=== PATIENT | male | born 1935 | race Caucasian/White ===

== ENCOUNTER 2019-09-15 16:00 | Observation (INO) | payer MEDICARE, OTHER ==
[2019-09-15] MEDS ORDERED: LORazepam 2 MG/ML SDV IVPUSH ONE ×2 (17:24→19:05)
[2019-09-15] MEDS: Sodium Chloride 0.9% 10 ML Syringe FLUSH PRN ×3 (17:46→21:47)
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
[2019-09-15] MEDS ORDERED: Haloperidol Lactate 5 MG/ML SDV IVPUSH ONE (19:04)
[2019-09-15] MEDS ORDERED: diphenhydrAMINE 50 MG/ML SDV IVPUSH ONE (19:04)
[2019-09-15] MEDS ORDERED: QUEtiapine 25 MG Tab PO ONE (20:21)
[2019-09-15] MEDS ORDERED: diphenhydrAMINE 50 MG/ML SDV IVPUSH PRN (20:22)
[2019-09-15] MEDS ORDERED: Nitroglycerin 0.4 MG Tab.SL SL PRN (20:24)
[2019-09-15] MEDS ORDERED: LORazepam 2 MG/ML SDV IVPUSH PRN (20:24)
[2019-09-16] MEDS ORDERED: Famotidine 20 MG Tab PO SCH (08:00)
[2019-09-16] MEDS ORDERED: Non-Formulary Medication 1 Each (Budesonide/Formoterol Fumarate 2 PUFF) INH SCH (08:00)
[2019-09-16] MEDS: Omeprazole 20 MG Cap.CR PO SCH (09:25)
[2019-09-16] MEDS: QUEtiapine 25 MG Tab PO SCH ×2 (09:26→17:26)
[2019-09-16] MEDS: Sucralfate 1 GM Tab PO SCH ×3 (09:26→17:26)
[2019-09-16] MEDS: amLODIPine 5 MG Tab PO SCH (09:26)
[2019-09-16] MEDS: Aspirin 81 MG Tab.EC PO SCH (09:26)
[2019-09-16] MEDS: Apixaban 5 MG Tab PO SCH ×2 (09:27→17:25)
[2019-09-16] MEDS: Metoprolol Succinate 25 MG Tab.ER PO SCH (09:27)
[2019-09-16] MEDS: Formoterol/Mometasone 200-5 MCG 8.8 GM Inhaler IH SCH ×2 (09:34→17:26)
[2019-09-16] MEDS ORDERED: Temazepam 15 MG Cap PO PRN (10:32)
--- NOTE | 2019-09-16 10:39 | PCM.PN ---
- General Info Date of Service: 09/16/19 Admission Dx/Problem (Free Text): Confusion Functional Status: Reports: Pain Controlled, Tolerating Diet, Ambulating, Urinating. Denies: New Symptoms, Incentive Spirometry Pain Score: 0 - Review of Systems General: Reports: No Symptoms HEENT: Reports: Glasses Pulmonary: Reports: No Symptoms. Denies: Shortness of Breath, Cough, Wheezing Cardiovascular: Reports: No Symptoms. Denies: Chest Pain, Dyspnea on Exertion, Orthopnea, Edema, Lightheadedness Gastrointestinal: Reports: No Symptoms. Denies: Abdominal Pain, Nausea, Vomiting Genitourinary: Reports: No Symptoms. Denies: Dysuria, Burning, Retention, Flank Pain Musculoskeletal: Reports: No Symptoms Skin: Reports: No Symptoms. Denies: Diaphoresis Neurological: Reports: Confusion (Improved by nurses history) Psychiatric: Reports: Confusion (As above), Agitation (Improved by nurses history). Denies: Depression, Anxiety, Cravings, Hallucinations, Homicidal Ideation Systems Review Comment:: Patient is a poor historian secondary to his mental status. - Patient Data Vitals - Most Recent: Last Vital Signs Temp 36.9 C 09/15/19 16:35 Pulse 67 09/16/19 09:27 Resp 20 09/15/19 18:02 BP 137/52 L 09/16/19 09:27 Pulse Ox 96 09/15/19 18:02 Vital Signs - 24 hr 09/15/19 09/15/19 09/16/19 16:35 18:02 09:26 Temperature [ 36.9 C Oral] Pulse, Peripheral Pulse, 72 74 Peripheral [ Pulse Oximetry] Respiratory 18 20 Rate Blood Pressure 137/52 L Blood Pressure 148/61 H 120/75 [Right Upper Arm] O2 Sat by Pulse 98 96 Oximetry 09/16/19 09:27 Temperature [ Oral] Pulse, 67 Peripheral Pulse, Peripheral [ Pulse Oximetry] Respiratory Rate Blood Pressure 137/52 L Blood Pressure [Right Upper Arm] O2 Sat by Pulse Oximetry Weight - Most Recent: 88.451 kg Imaging Impressions - Last 24 Hours: None Lab Results Last 24 Hours: Laboratory Results - last 24 hr 09/15/19 09/15/19 09/15/19 Range/Units 16:43 16:45 16:45 WBC 12.7 H (4.0-10.2) K/uL RBC 4.19 L (4.33-5.41) M/uL Hgb 12.0 L (13.1-16.8) g/dL Hct 38.0 L (39.0-49.0) % MCV 90.7 (84.0-98.0) fL MCH 28.6 (28.2-33.3) pg MCHC 31.6 L (31.7-36.0) g/dL RDW 13.9 (11.2-14.1) % Plt Count 233 (150-350) K/uL Neut % (Auto) 34.6 L (45.0-80.0) % Lymph % (Auto) 57.1 H (10.0-50.0) % [place] % (Auto) 5.5 (2.0-14.0) % Eos % (Auto) 2.6 (0.0-5.0) % Baso % (Auto) 0.2 (0.0-2.0) % Neut # (Auto) 4.41 (1.40-7.00) K/uL Lymph # (Auto) 7.27 H (0.50-3.50) K/uL [place] # (Auto) 0.70 (0.00-1.00) K/uL Eos # (Auto) 0.33 (0.00-0.50) K/uL Baso # (Auto) 0.02 (0.00-0.20) K/uL Sodium 141 (136-145) mmol/L Potassium 4.1 (3.5-5.1) mmol/L Chloride 105 (98-107) mmol/L Carbon Dioxide 26.3 (21.0-32.0) mmol/L BUN 27 H (7-18) mg/dL Creatinine 1.25 H (0.51-1.17) mg/dL Est Cr Clr Drug Dosing 43.99 mL/min Estimated GFR (MDRD) 55 mL/min Glucose 126 H (74-106) mg/dL POC Glucose 116 H (65-110) mg/dl Calcium 8.5 (8.5-10.1) mg/dL Magnesium 2.3 (1.8-2.4) mg/dL Total Bilirubin 0.4 (0.2-1.0) mg/dL AST 28 (15-37) U/L ALT 41 (12-78) U/L Alkaline Phosphatase 88 (46-116) IU/L Ammonia (11-32) umol/L Total Protein 6.9 (6.4-8.2) g/dL Albumin 3.0 L (3.4-5.0) g/dL Specimen Type Urine Color Urine Appearance Urine pH (5.0-9.0) Ur Specific [place] (1.005-1.030) Urine Protein (NEGATIVE) mg/dL Urine Glucose (UA) (NEGATIVE) mg/dL Urine Ketones (NEGATIVE) mg/dL Urine Occult Blood (NEGATIVE) Urine Nitrite (NEGATIVE) Urine Bilirubin (NEGATIVE) Urine Urobilinogen (0.2-1.0) E.U./dL Ur Leukocyte Esterase (NEGATIVE) U Hyaline Cast (Auto) Urine RBC /HPF Urine WBC /HPF Ur Epithelial Cells /LPF Urine Bacteria (NONE TO FEW) /HPF Granular Casts (Auto) Urine Mucus (NEGATIVE) /LPF Urinalysis Comment 09/15/19 09/15/19 Range/Units 16:45 17:35 WBC (4.0-10.2) K/uL RBC (4.33-5.41) M/uL Hgb (13.1-16.8) g/dL Hct (39.0-49.0) % MCV (84.0-98.0) fL MCH (28.2-33.3) pg MCHC (31.7-36.0) g/dL RDW (11.2-14.1) % Plt Count (150-350) K/uL Neut % (Auto) (45.0-80.0) % Lymph % (Auto) (10.0-50.0) % [place] % (Auto) (2.0-14.0) % Eos % (Auto) (0.0-5.0) % Baso % (Auto) (0.0-2.0) % Neut # (Auto) (1.40-7.00) K/uL Lymph # (Auto) (0.50-3.50) K/uL [place] # (Auto) (0.00-1.00) K/uL Eos # (Auto) (0.00-0.50) K/uL Baso # (Auto) (0.00-0.20) K/uL Sodium (136-145) mmol/L Potassium (3.5-5.1) mmol/L Chloride (98-107) mmol/L Carbon Dioxide (21.0-32.0) mmol/L BUN (7-18) mg/dL Creatinine (0.51-1.17) mg/dL Est Cr Clr Drug Dosing mL/min Estimated GFR (MDRD) mL/min Glucose (74-106) mg/dL POC Glucose (65-110) mg/dl Calcium (8.5-10.1) mg/dL Magnesium (1.8-2.4) mg/dL Total Bilirubin (0.2-1.0) mg/dL AST (15-37) U/L ALT (12-78) U/L Alkaline Phosphatase (46-116) IU/L Ammonia 4 L (11-32) umol/L Total Protein (6.4-8.2) g/dL Albumin (3.4-5.0) g/dL Specimen Type Urinblad Urine Color Clementina Urine Appearance Slightly cloudy Urine pH 5.5 (5.0-9.0) Ur Specific [place] 1.025 (1.005-1.030) Urine Protein 30 H (NEGATIVE) mg/dL Urine Glucose (UA) Negative (NEGATIVE) mg/dL Urine Ketones Negative (NEGATIVE) mg/dL Urine Occult Blood Negative (NEGATIVE) Urine Nitrite Negative (NEGATIVE) Urine Bilirubin Negative (NEGATIVE) Urine Urobilinogen 0.2 (0.2-1.0) E.U./dL Ur Leukocyte Esterase Negative (NEGATIVE) U Hyaline Cast (Auto) Few Urine RBC Not seen /HPF Urine WBC 0-5 /HPF Ur Epithelial Cells Few /LPF Urine Bacteria Few (NONE TO FEW) /HPF Granular Casts (Auto) Few Urine Mucus Many H (NEGATIVE) /LPF Urinalysis Comment Jose Results Last 24 Hours: None Med Orders - Current: Current Medications Amlodipine Besylate (Norvasc) 5 mg PO DAILY [facility] Last Admin: 09/16/19 09:26 Dose: 5 mg Apixaban (Eliquis) 5 mg PO BID [facility] Last Admin: 09/16/19 09:27 Dose: 5 mg Aspirin (Halfprin) 81 mg PO DAILY [facility] Last Admin: 09/16/19 09:26 Dose: 81 mg Atorvastatin Calcium (Lipitor) 20 mg PO DAILY@18 SVETLANA Diphenhydramine HCl (Benadryl) 50 mg IVPUSH Q8H PRN PRN Reason: Agitation Lorazepam (Ativan) 1 mg IVPUSH Q6H PRN PRN Reason: Agitation Metoprolol Succinate (Toprol Xl) 50 mg PO DAILY [facility] Last Admin: 09/16/19 09:27 Dose: 50 mg Mometasone Furoate/Formoterol Fumar (Dulera 200-5 Mcg) 2 puff IH BID [facility] Last Admin: 09/16/19 09:34 Dose: 2 inhalation Nitroglycerin (Nitrostat) 0.4 mg SL ASDIRECTED PRN PRN Reason: CHEST PAIN Non-Formulary Medication (Budesonide/Formoterol Fumarate) 2 puff INH BID [facility] Omeprazole (Omeprazole) 20 mg PO DAILY [facility] Last Admin: 09/16/19 09:25 Dose: 20 mg Quetiapine Fumarate (Seroquel) 25 mg PO BID [facility] Last Admin: 09/16/19 09:26 Dose: 25 mg Sodium Chloride (Saline Flush) 10 ml FLUSH ASDIRECTED PRN PRN Reason: Keep Vein Open Last Admin: 09/15/19 21:47 Dose: 10 ml Sucralfate (Carafate) 1 gm PO TID [facility] Last Admin: 09/16/19 09:26 Dose: 1 gm Temazepam (Restoril) 15 mg PO BEDTIME PRN PRN Reason: Insomnia Discontinued Medications Diphenhydramine HCl (Benadryl) 50 mg IVPUSH ONETIME ONE Stop: 09/15/19 19:05 Last Admin: 09/15/19 19:09 Dose: 50 mg Famotidine (Pepcid) 40 mg PO DAILY [facility] Last Admin: 09/16/19 09:25 Dose: 40 mg Haloperidol Lactate (Haldol) 5 mg IVPUSH ONETIME ONE Stop: 09/15/19 19:05 Last Admin: 09/15/19 21:47 Dose: 5 mg Lorazepam (Ativan) 0.5 mg IVPUSH ONETIME ONE Stop: 09/15/19 17:25 Last Admin: 09/15/19 17:43 Dose: 0.5 mg Lorazepam (Ativan) 1 mg IVPUSH ONETIME ONE Stop: 09/15/19 19:06 Last Admin: 09/15/19 19:09 Dose: 1 mg Non-Formulary Medication (Melatonin [Melatonin]) 5 mg PO BEDTIME SVETLANA Quetiapine Fumarate (Seroquel) 25 mg PO ONETIME ONE Stop: 09/15/19 20:22 Last Admin: 09/15/19 21:37 Dose: 25 mg - Exam Quality Assessment: DVT Prophylaxis (Eliquis). No: Supplemental Oxygen, Central Line/PICC, Urine Catheter, Skin Breakdown General: Alert, Cooperative, No Acute Distress. No: Oriented HEENT: Pupils Equal, Pupils Reactive, EOMI, Mucous Membr. Moist/[place], Other ( Patient wearing glasses). No: Scleral Icterus Neck: Supple, Trachea Midline, No JVD, No Thyromegaly, Carotid Bruit (Bilateral carotid bruitsmild). No: Lymphadenopathy Lungs: Clear to Auscultation, Normal Respiratory Effort, Stridor. No: Rub Cardiovascular: Regular Rate, Regular Rhythm. No: Gallops, Rubs GI/Abdominal Exam: Normal Bowel Sounds, Soft, Non-Tender, No Organomegaly, No Distention, No Abnormal Bruit, No Mass, Other (Obese). No: Guarding (Male) Exam: Deferred Back Exam: Normal Inspection, Full Range of Motion. No: CVA Tenderness (L), CVA Tenderness (R), Muscle Spasm Extremities: Normal Range of Motion, Non-Tender, Normal Capillary Refill, Pedal Edema (Trace bilateral pedal/pretibial edema). No: Adrianne's Sign Peripheral Pulses: 2+: Radial (L), Radial (R), Dorsalis Pedis (L), Dorsalis Pedis (R) Skin: Warm, Dry, Intact. No: Ecchymosis Neurological: No New Focal Deficit, Other (Improved moderate confusion with current Seroquel therapy by nurses' history. No agitation) Psy/Mental Status: Alert. No: Agitated, Hallucinations, Withdrawal Symptoms Sepsis Event Note - Evaluation Sepsis Screening Result: No Definite Risk - Focused Exam Vital Signs: Vital Signs Pulse BP 09/16/19 09:27 67 137/52 L 09/16/19 09:26 137/52 L Date Exam was Performed: 09/16/19 Time Exam was Performed: 10:33 - Problem List & Annotations (1) Confusion SNOMED Code(s): 286520837 Code(s): R41.0 - DISORIENTATION, UNSPECIFIED Status: Chronic Priority: High Current Visit: Yes Annotation/Comment:: Worsening dementia over last several months per his daughter's history as per emergency room note. No formal workup/cognitive testing to this point. Cerebral atrophy and small vessel disease on CT of the head on 09/15/19. Nonspecific lesion was noted by the radiologist, however, with consideration of MRI of the brain, neurological consultation, further workup, etc.. Note, however current comfort care status. Family is strongly considering long-term [facility] placement. PT and OT has been ordered. Per history from his daughter at this point it is unsafe for the patient to live alone/drive and care for self. Secondary to his confusion is Pepcid will be discontinued with continuation of his Prilosec for now. Update blood work in the a.m. to include possible additional etiology for his confusion including hypothyroidism, vitamin B-12 deficiency, etc.. Note additional Seroquel therapy on admission, which does appear to be effective. The patient did require initial IV Haldol and IV Ativan for control of his agitation, however. (2) CKD (chronic kidney disease) SNOMED Code(s): 047841029 Code(s): N18.9 - CHRONIC KIDNEY DISEASE, UNSPECIFIED Status: Chronic Priority: Medium Current Visit: Yes Qualifiers: Chronic kidney disease stage: on chronic dialysis Qualified Code(s): N18.6 - End stage renal disease; Z99.2 - Dependence on renal dialysis Annotation/Comment:: Stable per history with repeat blood work in the a.m. (3) HTN (hypertension) SNOMED Code(s): 46446173 Code(s): I10 - ESSENTIAL (PRIMARY) HYPERTENSION Status: Chronic Priority : Medium Current Visit: Yes Qualifiers: Hypertension type: essential hypertension Qualified Code(s): I10 - Essential (primary) hypertension Annotation/Comment:: Good control during this hospitalizatin. (4) Paroxysmal A-fib SNOMED Code(s): 146247059 Code(s): I48.0 - PAROXYSMAL ATRIAL FIBRILLATION Status: Acute Priority: Medium Current Visit: Yes Annotation/Comment:: Stable per history with current Eliquis. Note atrial fibrillation not indicated on emergency room note, however this was documented in EMR records. (5) Asthma SNOMED Code(s): 871391319 Code(s): J45.909 - UNSPECIFIED ASTHMA, UNCOMPLICATED Status: Chronic Priority: Medium Current Visit: Yes Qualifiers: Asthma severity: mild Asthma persistence: intermittent Asthma complication type: uncomplicated Qualified Code(s): J45.20 - Mild intermittent asthma, uncomplicated Annotation/Comment:: No recent fever or bronchitic type symptoms. (6) CAD (coronary artery disease) SNOMED Code(s): 18779416 Code(s): I25.10 - ATHSCL HEART DISEASE OF [place] CORONARY ARTERY W/O ANG PCTRS Status: Chronic Priority: Medium Current Visit: Yes Qualifiers: Coronary Disease-Associated Artery/Lesion type: unspecified vessel or lesion type [place] vs. transplanted heart: [place] heart Associated angina: angina presence unspecified Qualified Code(s): I25.10 - Atherosclerotic heart disease of [place] coronary artery without angina pectoris Annotation/Comment:: Hx of TX, stent placement, diastolic dysfunction, valvular disease. Followed by Cardiology. No acute changes/chest pain per patient and his family. Troponin I and BNP to be conducted on 09/16 secondary to recently initiated Seroquel. Note comfort care status. (7) CLL (chronic lymphocytic leukemia) SNOMED Code(s): 79988616 Code(s): C91.10 - CHRONIC LYMPHOCYTIC LEUK OF B-CELL TYPE NOT ACHIEVE REMIS Status: Chronic Priority: Medium Current Visit: Yes Annotation/Comment: : Mild leukocytosis on admission. Note comfort care. Repeat blood work prior to discharge. (8) GERD (gastroesophageal reflux disease) SNOMED Code(s): 558035383 Code(s): K21.9 - GASTRO-ESOPHAGEAL REFLUX DISEASE WITHOUT ESOPHAGITIS Status: Chronic Priority: Low Current Visit: Yes Qualifiers: Esophagitis presence: esophagitis presence not specified Qualified Code(s) : K21.9 - Gastro-esophageal reflux disease without esophagitis Annotation/Comment:: Stable per history with discontinuation of Pepcid as above. (9) Hyperlipidemia SNOMED Code(s): 54523036 Code(s): E78.5 - HYPERLIPIDEMIA, UNSPECIFIED Status: Chronic Priority: Medium Current Visit: Yes Qualifiers: Hyperlipidemia type: unspecified Qualified Code(s): E78.5 - Hyperlipidemia , unspecified Annotation/Comment:: Currently under therapy. Glycosylated hemoglobin in the a.m. (10) Need for comfort care SNOMED Code(s): 979757852, 116276414 Code(s): LDW4940 - Status: Chronic Priority: High Current Visit: Yes Annotation/Comment:: As above (11) Mixed anxiety depressive disorder SNOMED Code(s): 750862844 Code(s): F41.8 - OTHER SPECIFIED ANXIETY DISORDERS Status: Chronic Priority: Medium Current Visit: Yes Annotation/Comment:: Otherwise stable by history. Observe for now. - Problem List Review Problem List Initiated/Reviewed/Updated: Yes - My Orders Last 24 Hours: My Active Orders 09/16/19 10:14 Comfort Measures [OM.PC] Routine 09/16/19 10:24 GM Immunization Reflex [OM.PC] Click To Edit 09/16/19 10:27 Communication, Vaccine [RC] PER UNIT ROUTINE Vaccines to be Administered [RC] PER UNIT ROUTINE 09/16/19 10:31 Antiembolic Devices [RC] .Routine VTE Risk Score [RC] UPON VTE/DVT Education [RC] PER UNIT ROUTINE DVT/VTE Prophylaxis Reflex [OM.PC] Routine 09/16/19 10:32 Temazepam [Restoril] 15 mg PO BEDTIME PRN 09/16/19 10:33 Communication Order [RC] ROUTINE 09/17/19 05:11 CBC WITH AUTO DIFF [HEME] Routine COMPREHENSIVE METABOLIC PN,CMP [CHEM] Routine FERRITIN [CHEM] Routine FOLIC ACID [CHEM] Routine GLYCOSYLATED HEMOGLOBIN,HGBA1C [CHEM] Routine IRON/TIBC [CHEM] Routine MAGNESIUM [CHEM] Routine PRO B-TYPE NATRIUR PEPT,BNPPRO [CHEM] Routine TROPONIN I [CHEM] Routine TSH ULTRASENSITIVE [CHEM] Routine URIC ACID [CHEM] Routine VITAMIN B12 [CHEM] Routine - Assessment Assessment:: As above - Plan Plan:: As above. Extensive precautions were given to the patient, who is in agreement with the treatment plan. Patient will likely be transferred to a long-term [facility] in the a.m., however we are still awaiting his family's final decision.
[2019-09-16] MEDS: Sodium Chloride 0.9% 10 ML Syringe FLUSH PRN ×2 (12:03→22:13)
[2019-09-16] MEDS ORDERED: atorvaSTATin 10 MG Tab PO SCH (18:00)
[2019-09-16] MEDS ORDERED: Non-Formulary Medication 1 Each (Melatonin [Melatonin] 5 MG) PO SCH (20:00)
[2019-09-17 07:29] LABS: HEMOGLOBIN A1C 6.7 % (4.3-5.7)
[2019-09-17 08:02] LABS: CHLORIDE,CL 110 mmol/L (98-107); SODIUM,NA 146 mmol/L (136-145)
[2019-09-17] MEDS: Sucralfate 1 GM Tab PO SCH ×2 (09:07→13:17)
[2019-09-17] MEDS: Apixaban 5 MG Tab PO SCH (09:07)
[2019-09-17] MEDS: Metoprolol Succinate 25 MG Tab.ER PO SCH (09:07)
[2019-09-17] MEDS: Omeprazole 20 MG Cap.CR PO SCH (09:07)
[2019-09-17] MEDS: Aspirin 81 MG Tab.EC PO SCH (09:08)
[2019-09-17] MEDS: amLODIPine 5 MG Tab PO SCH (09:08)
[2019-09-17 09:09] VITALS: BP 181/66; PULSE 67
[2019-09-17] MEDS: Formoterol/Mometasone 200-5 MCG 8.8 GM Inhaler IH SCH (09:09)
[2019-09-17] MEDS: QUEtiapine 25 MG Tab PO SCH (09:10)
--- NOTE | 2019-09-17 12:43 | PCM.DCSUM1 ---
Discharge Summary - Hospital Course HPI Initial Comments: See emergency room note/admission H&P Brief History: See emergency room note/admission H&P Diagnosis: Stroke: No Modified [place] Scale: No Symptoms at All Modified [place] Scale Score: 0 - Discharge Data Discharge Date: 09/17/19 Discharge Disposition: DC/Tfer W/I Hosp To Swing 61 Condition: Fair - Referral to Home Health Primary Care Physician: Yocasta Husain NP - Discharge Diagnosis/Problem(s) (1) Confusion SNOMED Code(s): 824853820 ICD Code: R41.0 - DISORIENTATION, UNSPECIFIED Status: Chronic Priority: High Current Visit: Yes Problem Details: Various treatment options were provided to the patient's family, who are still having difficulties making a final decision. This did result in some delay of patient transfer with out sequelae. Family has been extensively counseled concerning the increased cost of self-pay in our swing bed unit versus placement of the patient in a local [facility], however they are requesting placement in our swing bed for now. He apparently does not qualify for further payment for PT and OT, which was conducted during his observation status. Recent history of worsening dementia over last several months per his daughter's history as per emergency room note. No formal workup/cognitive testing to this point. Cerebral atrophy and small vessel disease on CT of the head on 09/15/19. Nonspecific lesion was noted by the radiologist, however, with consideration of MRI of the brain, neurological consultation, further workup, etc. depending on his clinical course and per wishes from the family and his new provider, SD Morejon at the [facility]. Note, however current comfort care status. Per history from his daughter at this point it is unsafe for the patient to live alone/drive and care for self. Secondary to his confusion his Pepcid was discontinued on 09/15 with continuation of his Prilosec for now. Update blood work on 09/16 with no additional etiology for his confusion although his TSH is somewhat elevated likely secondary to concomitant administration of his iron, calcium, magnesium supplements. These supplements were changed to an every afternoon basis with repeat TSH recommended in 4 weeks. Vitamin B-12 deficiency, etc. are not an issue at this time based on today's blood work. His iron level was normal with somewhat decreased TIBC see likely secondary to his hypoalbuminemia. No further increase of his iron supplement for now. Note additional Seroquel therapy on admission, which did appear to be effective. His therapy will be decreased to a daily rather than twice a day regimen, however, secondary to patient's mild BNP elevation and hyponatremia. Seroquel was not given in the a.m. of 09/16 without sequelae. Continue to observe his mental status closely during his swing bed care, etc. The patient did require initial IV Haldol and IV Ativan for control of his agitation, etc. during early phases of his care, however. No significant agitation on day of transfer. (2) CKD (chronic kidney disease) SNOMED Code(s): 477758001 ICD Code: N18.9 - CHRONIC KIDNEY DISEASE, UNSPECIFIED Status: Chronic Priority: Medium Current Visit: Yes Problem Details: Stable per history and today's blood work with continued close observation by his regular providers. Qualifiers: Chronic kidney disease stage: on chronic dialysis Qualified Code(s): N18.6 - End stage renal disease; Z99.2 - Dependence on renal dialysis (3) HTN (hypertension) SNOMED Code(s): 21292008 ICD Code: I10 - ESSENTIAL (PRIMARY) HYPERTENSION Status: Chronic Priority : Medium Current Visit: Yes Problem Details: Good control during this hospitalizatin. Qualifiers: Hypertension type: essential hypertension Qualified Code(s): I10 - Essential (primary) hypertension (4) Paroxysmal A-fib SNOMED Code(s): 321016293 ICD Code: I48.0 - PAROXYSMAL ATRIAL FIBRILLATION Status: Acute Priority: Medium Current Visit: Yes Problem Details: Stable per history with current Eliquis. Mild sinus arrhythmia today by EKG. Note atrial fibrillation not indicated on emergency room note, however this was documented in EMR records. (5) Asthma SNOMED Code(s): 106768455 ICD Code: J45.909 - UNSPECIFIED ASTHMA, UNCOMPLICATED Status: Chronic Priority: Medium Current Visit: Yes Problem Details: No recent fever or bronchitic type symptoms. Qualifiers: Asthma severity: mild Asthma persistence: intermittent Asthma complication type: uncomplicated Qualified Code(s): J45.20 - Mild intermittent asthma, uncomplicated (6) CAD (coronary artery disease) SNOMED Code(s): 34886557 ICD Code: I25.10 - ATHSCL HEART DISEASE OF [place] CORONARY ARTERY W/O ANG PCTRS Status: Chronic Priority: Medium Current Visit: Yes Problem Details: Hx of [place], stent placement, diastolic dysfunction, valvular disease. Followed by Cardiology. No acute changes/chest pain per patient and his family. Troponin I was still normal with mild BNP elevation and hypernatremia likely secondary to with reduction of therapy as above. Repeat troponin I and BNP recommended in about 2 weeks. Note comfort care status with no echocardiogram, etc. for now. Qualifiers: Coronary Disease-Associated Artery/Lesion type: unspecified vessel or lesion type [place] vs. transplanted heart: [place] heart Associated angina: angina presence unspecified Qualified Code(s): I25.10 - Atherosclerotic heart disease of [place] coronary artery without angina pectoris (7) CLL (chronic lymphocytic leukemia) SNOMED Code(s): 03383305 ICD Code: C91.10 - CHRONIC LYMPHOCYTIC LEUK OF B-CELL TYPE NOT ACHIEVE REMIS Status: Chronic Priority: Medium Current Visit: Yes Problem Details: Mild leukocytosis on admission some improvement on 09/16.. Note comfort care. Continue to observe closely by regular providers. (8) GERD (gastroesophageal reflux disease) SNOMED Code(s): 330699224 ICD Code: K21.9 - GASTRO-ESOPHAGEAL REFLUX DISEASE WITHOUT ESOPHAGITIS Status: Chronic Priority: Low Current Visit: Yes Problem Details: Stable per history with discontinuation of Pepcid as above. Qualifiers: Esophagitis presence: esophagitis presence not specified Qualified Code(s) : K21.9 - Gastro-esophageal reflux disease without esophagitis (9) Hyperlipidemia SNOMED Code(s): 51759620 ICD Code: E78.5 - HYPERLIPIDEMIA, UNSPECIFIED Status: Chronic Priority: Medium Current Visit: Yes Problem Details: Currently under therapy. Glycosylated hemoglobin on 09/16 mildly elevated at 6.7%. Continue dietary management for now with repeat lipid panel per the discretion of his regular providers. Qualifiers: Hyperlipidemia type: unspecified Qualified Code(s): E78.5 - Hyperlipidemia , unspecified (10) Need for comfort care SNOMED Code(s): 603546381, 243422326 ICD Code: SQG2310 - Status: Chronic Priority: High Current Visit: Yes Problem Details: As above (11) Mixed anxiety depressive disorder SNOMED Code(s): 188305915 ICD Code: F41.8 - OTHER SPECIFIED ANXIETY DISORDERS Status: Chronic Priority: Medium Current Visit: Yes Problem Details: Otherwise stable by history. Observe for now. (12) Hypoalbuminemia SNOMED Code(s): 806680284 ICD Code: E88.09 - OTH DISORDERS OF PLASMA-PROTEIN METABOLISM, NEC Status: Acute Priority: Medium Current Visit: Yes Onset Date: 09/17/19 Problem Details: As above. Observe for now. Consider high-protein Glucerna supplements. - Patient Summary/Data Operative Procedure(s) Performed: None Complications: None Consults: Consultations 09/15/19 19:52 Consult to Case Management/Diamond Sawer [CONS] Routine 09/15/19 20:17 OT Evaluation and Treatment [CONS] Routine PT Evaluation and Treatment [CONS] Routine Labs Pending at D/C: Final report of CT of the head on 09/15/19. Recommended Follow-up Testing/Procedures: As per transfer instructions Planned Operative Procedure(s) after DC: None Hospital Course: The patient was placed in observation status for further evaluation and treatment of his progressive recent confusion and agitation as above. He did respond to medical therapy as above with patient being a candidate for possible further reduction of his Seroquel with further medication adjustment depending on his clinical course. The family is still deciding whether they want long- term care placement with this to be discussed further with the patient's regular provider. Emotional support was provided by multiple hospital staff members. His regular provider, SD Morejon at the [facility], will assume the patient's care in our swing bed for now. - Patient Instructions Diet: Fluid Restriction Diet, Other: Heart healthy, 1800-calorie ADA, diverticulosis Fluid Restriction: 2000 mL Activity: As Tolerated (With assist with strict fall precautions) Driving: Do Not Drive Showering/Bathing: May Shower Notify Provider of: Fever, Increased Pain, Nausea and/or Vomiting Other/Special Instructions: 1. Further medication changes, orders, etc. through his regular provider, SD Morejon at the [facility]. 2. Consider repeat TSH in 4 weeks. 3. Discuss with regular provider possibility of MRI of the brain, neurology consultation, etc. secondary to recent confusion and CT scan of the brain results on 09/14. - Discharge Plan *PRESCRIPTION DRUG MONITORING PROGRAM REVIEWED*: Not Applicable *COPY OF PRESCRIPTION DRUG MONITORING REPORT IN PATIENT KHURRAM: Not Applicable Home Medications: Home Meds Aspirin [Adult Low Dose Aspirin EC] 81 mg PO DAILY 07/19/14 [History] Fluticasone/Salmeterol [Advair 500-50] 1 puff INH BID 07/19/14 [History] Lovastatin 80 mg PO DAILY@18 07/19/14 [History] Metoprolol Succinate [Toprol XL] 50 mg PO DAILY 07/19/14 [History] Omeprazole 20 mg PO DAILY 07/19/14 [History] amLODIPine [Norvasc] 5 mg PO DAILY 01/20/19 [History] Apixaban [Eliquis] 5 mg PO BID 03/23/19 [History] Melatonin 5 mg PO BEDTIME 03/23/19 [History] Nitroglycerin [Nitrostat] 0.4 mg SL ASDIRECTED PRN 03/23/19 [History] Vit C/E/Zn/Coppr/Lutein/Zeaxan [Preservision Areds 2 Softgel] 1 each PO BID 06/10 [History] Budesonide/Formoterol Fumarate [Symbicort 160-4.5 Mcg Inhaler] 2 puff INH BID [History] Famotidine [Pepcid] 40 mg PO DAILY 09/15/19 [History] Sucralfate [Carafate] 1 gm PO TID 09/15/19 [History] Temazepam [Restoril] 30 mg PO BEDTIME PRN 09/15/19 [History] Oxygen Therapy Mode: Room Air Referrals: Yocasta Husain DIGITAL CONTENT MANAGER [Primary Care Provider] - - Discharge Summary/Plan Comment DC Time >30 min.: Yes (Coordination of care ) Discharge Summary/Plan Comment: As above. Extensive precautions were given to the patient's, who is in agreement with the treatment plan. See Patient Instructions and transfer orders for further treatment and plan. - General Info Date of Service: 09/17/19 Admission Dx/Problem (Free Text: Confusion Functional Status: Reports: Pain Controlled, Tolerating Diet, Ambulating, Urinating. Denies: New Symptoms, Incentive Spirometry Numeric/FACES Score: 0 - Review of Systems General: Reports: No Symptoms. Denies: Fever, Weakness, Chills, Night Sweats, Appetite (Appetite good) HEENT: Reports: Glasses. Denies: Headaches, Visual Changes Pulmonary: Reports: No Symptoms. Denies: Shortness of Breath, Cough, Wheezing Cardiovascular: Reports: No Symptoms. Denies: Chest Pain, Palpitations, Orthopnea, Edema, Lightheadedness Gastrointestinal: Reports: No Symptoms. Denies: Abdominal Pain, Constipation, Decreased Appetite, Diarrhea, Difficulty Swallowing, Flatus, Hematochezia, Melena, Nausea, Vomiting Genitourinary: Reports: No Symptoms. Denies: Dysuria, Frequency, Burning, Urgency, Hematuria, Flank Pain Musculoskeletal: Reports: No Symptoms. Denies: Neck Pain, Shoulder Pain, Arm Pain, Back Pain, Leg Pain Skin: Reports: No Symptoms. Denies: Diaphoresis Neurological: Reports: Confusion (Stable) Psychiatric: Reports: Confusion (Stable). Denies: Depression, Anxiety, Agitation, Cravings, Hallucinations, Homicidal Ideation - Patient Data Vitals - Most Recent: Last Vital Signs Temp 36.5 C 09/17/19 06:00 Pulse 67 09/17/19 09:07 Resp 16 09/17/19 06:00 BP 181/66 H 09/17/19 09:08 Pulse Ox 99 09/17/19 06:00 Vital Signs - 24 hr 09/16/19 09/16/19 09/17/19 18:00 22:05 06:00 Temperature [ 36.1 C 36.0 C L 36.5 C Temporal] Pulse, Peripheral Pulse, 60 95 67 Peripheral [ Pulse Oximetry] Respiratory 20 14 16 Rate Blood Pressure Blood Pressure 129/48 L 181/66 H [Left Upper Arm ] Blood Pressure 135/64 [Right Upper Arm] O2 Sat by Pulse 99 96 99 Oximetry 09/17/19 09/17/19 09:07 09:08 Temperature [ Temporal] Pulse, 67 Peripheral Pulse, Peripheral [ Pulse Oximetry] Respiratory Rate Blood Pressure 181/66 H 181/66 H Blood Pressure [Left Upper Arm ] Blood Pressure [Right Upper Arm] O2 Sat by Pulse Oximetry Weight - Most Recent: 88.451 kg I&O - Last 24 hours: Intake & Output 09/16/19 09/17/19 09/17/19 22:59 06:59 14:59 Intake Total 1530 100 600 Balance 1530 100 600 Imaging Impressions - Last 24 hrs: CT of the head results from 09/15/19 were negative for acute bleed/changes but noted to have soft tissue density near cranial occipital junction. Radiology did not feel that this would result in confusion but did say that an MRI could be useful down the road to more adequately work up the observed change. Also noted to have cerebral atrophy and small vessel ischemic disease. Final report is still pending Lab Results - Last 24 hrs: Laboratory Results - last 24 hr 09/17/19 09/17/19 09/17/19 Range/Units 07:10 07:10 07:10 WBC 10.8 H (4.0-10.2) K/uL RBC 4.01 L (4.33-5.41) M/uL Hgb 11.5 L (13.1-16.8) g/dL Hct 36.4 L (39.0-49.0) % MCV 90.8 (84.0-98.0) fL MCH 28.7 (28.2-33.3) pg MCHC 31.6 L (31.7-36.0) g/dL RDW 13.6 (11.2-14.1) % Plt Count 221 (150-350) K/uL Neut % (Auto) 33.5 L (45.0-80.0) % Lymph % (Auto) 58.2 H (10.0-50.0) % [place] % (Auto) 4.7 (2.0-14.0) % Eos % (Auto) 3.3 (0.0-5.0) % Baso % (Auto) 0.3 (0.0-2.0) % Neut # (Auto) 3.63 (1.40-7.00) K/uL Lymph # (Auto) 6.30 H (0.50-3.50) K/uL [place] # (Auto) 0.51 (0.00-1.00) K/uL Eos # (Auto) 0.36 (0.00-0.50) K/uL Baso # (Auto) 0.03 (0.00-0.20) K/uL Sodium 146 H (136-145) mmol/L Potassium 4.2 (3.5-5.1) mmol/L Chloride 110 H (98-107) mmol/L Carbon Dioxide 27.4 (21.0-32.0) mmol/L BUN 21 H (7-18) mg/dL Creatinine 1.02 (0.51-1.17) mg/dL Est Cr Clr Drug Dosing 53.91 mL/min Estimated GFR (MDRD) > 60 mL/min Glucose 110 H (74-106) mg/dL Hemoglobin A1c (4.3-5.7) % Uric Acid 6.9 (2.6-7.2) mg/dL Calcium 8.2 L (8.5-10.1) mg/dL Magnesium 2.3 (1.8-2.4) mg/dL Iron 52 (50-175) ug/dL TIBC 188 L (250-450) ug/dL % Saturation 27.69204 Ferritin 212 (8-388) ng/mL Total Bilirubin 0.3 (0.2-1.0) mg/dL AST 27 (15-37) U/L ALT 35 (12-78) U/L Alkaline Phosphatase 76 (46-116) IU/L Troponin I 0.013 (0.000-0.056) ng/mL NT-Pro-B Natriuret Pep 407 H (0-125) pg/mL Total Protein 6.0 L (6.4-8.2) g/dL Albumin 2.4 L (3.4-5.0) g/dL Vitamin B12 495 (193-986) pg/mL Folate 20.3 (8.6-58.9) ng/mL TSH, Ultra Sensitive 3.102 (0.358-3.740) mIU/mL 09/17/19 Range/Units 07:10 WBC (4.0-10.2) K/uL RBC (4.33-5.41) M/uL Hgb (13.1-16.8) g/dL Hct (39.0-49.0) % MCV (84.0-98.0) fL MCH (28.2-33.3) pg MCHC (31.7-36.0) g/dL RDW (11.2-14.1) % Plt Count (150-350) K/uL Neut % (Auto) (45.0-80.0) % Lymph % (Auto) (10.0-50.0) % [place] % (Auto) (2.0-14.0) % Eos % (Auto) (0.0-5.0) % Baso % (Auto) (0.0-2.0) % Neut # (Auto) (1.40-7.00) K/uL Lymph # (Auto) (0.50-3.50) K/uL [place] # (Auto) (0.00-1.00) K/uL Eos # (Auto) (0.00-0.50) K/uL Baso # (Auto) (0.00-0.20) K/uL Sodium (136-145) mmol/L Potassium (3.5-5.1) mmol/L Chloride (98-107) mmol/L Carbon Dioxide (21.0-32.0) mmol/L BUN (7-18) mg/dL Creatinine (0.51-1.17) mg/dL Est Cr Clr Drug Dosing mL/min Estimated GFR (MDRD) mL/min Glucose (74-106) mg/dL Hemoglobin A1c 6.7 H (4.3-5.7) % Uric Acid (2.6-7.2) mg/dL Calcium (8.5-10.1) mg/dL Magnesium (1.8-2.4) mg/dL Iron (50-175) ug/dL TIBC (250-450) ug/dL % Saturation Ferritin (8-388) ng/mL Total Bilirubin (0.2-1.0) mg/dL AST (15-37) U/L ALT (12-78) U/L Alkaline Phosphatase (46-116) IU/L Troponin I (0.000-0.056) ng/mL NT-Pro-B Natriuret Pep (0-125) pg/mL Total Protein (6.4-8.2) g/dL Albumin (3.4-5.0) g/dL Vitamin B12 (193-986) pg/mL Folate (8.6-58.9) ng/mL TSH, Ultra Sensitive (0.358-3.740) mIU/mL Laboratory Tests 09/15/19 09/15/19 09/15/19 Range/Units 16:43 16:45 16:45 WBC 12.7 H (4.0-10.2) K/uL RBC 4.19 L (4.33-5.41) M/uL Hgb 12.0 L (13.1-16.8) g/dL Hct 38.0 L (39.0-49.0) % MCV 90.7 (84.0-98.0) fL MCH 28.6 (28.2-33.3) pg MCHC 31.6 L (31.7-36.0) g/dL RDW 13.9 (11.2-14.1) % Plt Count 233 (150-350) K/uL Neut % (Auto) 34.6 L (45.0-80.0) % Lymph % (Auto) 57.1 H (10.0-50.0) % [place] % (Auto) 5.5 (2.0-14.0) % Eos % (Auto) 2.6 (0.0-5.0) % Baso % (Auto) 0.2 (0.0-2.0) % Neut # (Auto) 4.41 (1.40-7.00) K/uL Lymph # (Auto) 7.27 H (0.50-3.50) K/uL [place] # (Auto) 0.70 (0.00-1.00) K/uL Eos # (Auto) 0.33 (0.00-0.50) K/uL Baso # (Auto) 0.02 (0.00-0.20) K/uL Sodium 141 (136-145) mmol/L Potassium 4.1 (3.5-5.1) mmol/L Chloride 105 (98-107) mmol/L Carbon Dioxide 26.3 (21.0-32.0) mmol/L BUN 27 H (7-18) mg/dL Creatinine 1.25 H (0.51-1.17) mg/dL Est Cr Clr Drug Dosing 43.99 mL/min Estimated GFR (MDRD) 55 mL/min Glucose 126 H (74-106) mg/dL POC Glucose 116 H (65-110) mg/dl Hemoglobin A1c (4.3-5.7) % Uric Acid (2.6-7.2) mg/dL Calcium 8.5 (8.5-10.1) mg/dL Magnesium 2.3 (1.8-2.4) mg/dL Iron (50-175) ug/dL TIBC (250-450) ug/dL % Saturation Ferritin (8-388) ng/mL Total Bilirubin 0.4 (0.2-1.0) mg/dL AST 28 (15-37) U/L ALT 41 (12-78) U/L Alkaline Phosphatase 88 (46-116) IU/L Ammonia (11-32) umol/L Troponin I (0.000-0.056) ng/mL NT-Pro-B Natriuret Pep (0-125) pg/mL Total Protein 6.9 (6.4-8.2) g/dL Albumin 3.0 L (3.4-5.0) g/dL Vitamin B12 (193-986) pg/mL Folate (8.6-58.9) ng/mL TSH, Ultra Sensitive (0.358-3.740) mIU/mL Specimen Type Urine Color Urine Appearance Urine pH (5.0-9.0) Ur Specific [place] (1.005-1.030) Urine Protein (NEGATIVE) mg/dL Urine Glucose (UA) (NEGATIVE) mg/dL Urine Ketones (NEGATIVE) mg/dL Urine Occult Blood (NEGATIVE) Urine Nitrite (NEGATIVE) Urine Bilirubin (NEGATIVE) Urine Urobilinogen (0.2-1.0) E.U./dL Ur Leukocyte Esterase (NEGATIVE) U Hyaline Cast (Auto) Urine RBC /HPF Urine WBC /HPF Ur Epithelial Cells /LPF Urine Bacteria (NONE TO FEW) /HPF Granular Casts (Auto) Urine Mucus (NEGATIVE) /LPF Urinalysis Comment 09/15/19 09/15/19 09/17/19 Range/Units 16:45 17:35 07:10 WBC 10.8 H (4.0-10.2) K/uL RBC 4.01 L (4.33-5.41) M/uL Hgb 11.5 L (13.1-16.8) g/dL Hct 36.4 L (39.0-49.0) % MCV 90.8 (84.0-98.0) fL MCH 28.7 (28.2-33.3) pg MCHC 31.6 L (31.7-36.0) g/dL RDW 13.6 (11.2-14.1) % Plt Count 221 (150-350) K/uL Neut % (Auto) 33.5 L (45.0-80.0) % Lymph % (Auto) 58.2 H (10.0-50.0) % [place] % (Auto) 4.7 (2.0-14.0) % Eos % (Auto) 3.3 (0.0-5.0) % Baso % (Auto) 0.3 (0.0-2.0) % Neut # (Auto) 3.63 (1.40-7.00) K/uL Lymph # (Auto) 6.30 H (0.50-3.50) K/uL [place] # (Auto) 0.51 (0.00-1.00) K/uL Eos # (Auto) 0.36 (0.00-0.50) K/uL Baso # (Auto) 0.03 (0.00-0.20) K/uL Sodium (136-145) mmol/L Potassium (3.5-5.1) mmol/L Chloride (98-107) mmol/L Carbon Dioxide (21.0-32.0) mmol/L BUN (7-18) mg/dL Creatinine (0.51-1.17) mg/dL Est Cr Clr Drug Dosing mL/min Estimated GFR (MDRD) mL/min Glucose (74-106) mg/dL POC Glucose (65-110) mg/dl Hemoglobin A1c (4.3-5.7) % Uric Acid (2.6-7.2) mg/dL Calcium (8.5-10.1) mg/dL Magnesium (1.8-2.4) mg/dL Iron (50-175) ug/dL TIBC (250-450) ug/dL % Saturation Ferritin (8-388) ng/mL Total Bilirubin (0.2-1.0) mg/dL AST (15-37) U/L ALT (12-78) U/L Alkaline Phosphatase (46-116) IU/L Ammonia 4 L (11-32) umol/L Troponin I (0.000-0.056) ng/mL NT-Pro-B Natriuret Pep (0-125) pg/mL Total Protein (6.4-8.2) g/dL Albumin (3.4-5.0) g/dL Vitamin B12 (193-986) pg/mL Folate (8.6-58.9) ng/mL TSH, Ultra Sensitive (0.358-3.740) mIU/mL Specimen Type Urinblad Urine Color [place] Urine Appearance Slightly cloudy Urine pH 5.5 (5.0-9.0) Ur Specific [place] 1.025 (1.005-1.030) Urine Protein 30 H (NEGATIVE) mg/dL Urine Glucose (UA) Negative (NEGATIVE) mg/dL Urine Ketones Negative (NEGATIVE) mg/dL Urine Occult Blood Negative (NEGATIVE) Urine Nitrite Negative (NEGATIVE) Urine Bilirubin Negative (NEGATIVE) Urine Urobilinogen 0.2 (0.2-1.0) E.U./dL Ur Leukocyte Esterase Negative (NEGATIVE) U Hyaline Cast (Auto) Few Urine RBC Not seen /HPF Urine WBC 0-5 /HPF Ur Epithelial Cells Few /LPF Urine Bacteria Few (NONE TO FEW) /HPF Granular Casts (Auto) Few Urine Mucus Many H (NEGATIVE) /LPF Urinalysis Comment 09/17/19 09/17/19 09/17/19 Range/Units 07:10 07:10 07:10 WBC (4.0-10.2) K/uL RBC (4.33-5.41) M/uL Hgb (13.1-16.8) g/dL Hct (39.0-49.0) % MCV (84.0-98.0) fL MCH (28.2-33.3) pg MCHC (31.7-36.0) g/dL RDW (11.2-14.1) % Plt Count (150-350) K/uL Neut % (Auto) (45.0-80.0) % Lymph % (Auto) (10.0-50.0) % [place] % (Auto) (2.0-14.0) % Eos % (Auto) (0.0-5.0) % Baso % (Auto) (0.0-2.0) % Neut # (Auto) (1.40-7.00) K/uL Lymph # (Auto) (0.50-3.50) K/uL [place] # (Auto) (0.00-1.00) K/uL Eos # (Auto) (0.00-0.50) K/uL Baso # (Auto) (0.00-0.20) K/uL Sodium 146 H (136-145) mmol/L Potassium 4.2 (3.5-5.1) mmol/L Chloride 110 H (98-107) mmol/L Carbon Dioxide 27.4 (21.0-32.0) mmol/L BUN 21 H (7-18) mg/dL Creatinine 1.02 (0.51-1.17) mg/dL Est Cr Clr Drug Dosing 53.91 mL/min Estimated GFR (MDRD) > 60 mL/min Glucose 110 H (74-106) mg/dL POC Glucose (65-110) mg/dl Hemoglobin A1c 6.7 H (4.3-5.7) % Uric Acid 6.9 (2.6-7.2) mg/dL Calcium 8.2 L (8.5-10.1) mg/dL Magnesium 2.3 (1.8-2.4) mg/dL Iron 52 (50-175) ug/dL TIBC 188 L (250-450) ug/dL % Saturation 27.17608 Ferritin 212 (8-388) ng/mL Total Bilirubin 0.3 (0.2-1.0) mg/dL AST 27 (15-37) U/L ALT 35 (12-78) U/L Alkaline Phosphatase 76 (46-116) IU/L Ammonia (11-32) umol/L Troponin I 0.013 (0.000-0.056) ng/mL NT-Pro-B Natriuret Pep 407 H (0-125) pg/mL Total Protein 6.0 L (6.4-8.2) g/dL Albumin 2.4 L (3.4-5.0) g/dL Vitamin B12 495 (193-986) pg/mL Folate 20.3 (8.6-58.9) ng/mL TSH, Ultra Sensitive 3.102 (0.358-3.740) mIU/mL Specimen Type Urine Color Urine Appearance Urine pH (5.0-9.0) Ur Specific [place] (1.005-1.030) Urine Protein (NEGATIVE) mg/dL Urine Glucose (UA) (NEGATIVE) mg/dL Urine Ketones (NEGATIVE) mg/dL Urine Occult Blood (NEGATIVE) Urine Nitrite (NEGATIVE) Urine Bilirubin (NEGATIVE) Urine Urobilinogen (0.2-1.0) E.U./dL Ur Leukocyte Esterase (NEGATIVE) U Hyaline Cast (Auto) Urine RBC /HPF Urine WBC /HPF Ur Epithelial Cells /LPF Urine Bacteria (NONE TO FEW) /HPF Granular Casts (Auto) Urine Mucus (NEGATIVE) /LPF Urinalysis Comment LILIANA Results - Last 24 hrs: None Med Orders - Current: Current Medications Amlodipine Besylate (Norvasc) 5 mg PO DAILY [facility] Last Admin: 09/17/19 09:08 Dose: 5 mg Apixaban (Eliquis) 5 mg PO BID [facility] Last Admin: 09/17/19 09:07 Dose: 5 mg Aspirin (Halfprin) 81 mg PO DAILY [facility] Last Admin: 09/17/19 09:08 Dose: 81 mg Atorvastatin Calcium (Lipitor) 20 mg PO DAILY@18 [facility] Last Admin: 09/16/19 17:25 Dose: 20 mg Diphenhydramine HCl (Benadryl) 50 mg IVPUSH Q8H PRN PRN Reason: Agitation Lorazepam (Ativan) 1 mg IVPUSH Q6H PRN PRN Reason: Agitation Metoprolol Succinate (Toprol Xl) 50 mg PO DAILY [facility] Last Admin: 09/17/19 09:07 Dose: 50 mg Mometasone Furoate/Formoterol Fumar (Dulera 200-5 Mcg) 2 puff IH BID [facility] Last Admin: 09/17/19 09:09 Dose: 2 inhalation Nitroglycerin (Nitrostat) 0.4 mg SL ASDIRECTED PRN PRN Reason: CHEST PAIN Non-Formulary Medication (Budesonide/Formoterol Fumarate) 2 puff INH BID [facility] Omeprazole (Omeprazole) 20 mg PO DAILY [facility] Last Admin: 09/17/19 09:07 Dose: 20 mg Quetiapine Fumarate (Seroquel) 25 mg PO DAILY [facility] Sodium Chloride (Saline Flush) 10 ml FLUSH ASDIRECTED PRN PRN Reason: Keep Vein Open Last Admin: 09/16/19 22:13 Dose: 10 ml Sucralfate (Carafate) 1 gm PO TID [facility] Last Admin: 09/17/19 09:07 Dose: 1 gm Temazepam (Restoril) 15 mg PO BEDTIME PRN PRN Reason: Insomnia Discontinued Medications Diphenhydramine HCl (Benadryl) 50 mg IVPUSH ONETIME ONE Stop: 09/15/19 19:05 Last Admin: 09/15/19 19:09 Dose: 50 mg Famotidine (Pepcid) 40 mg PO DAILY [facility] Last Admin: 09/16/19 09:25 Dose: 40 mg Haloperidol Lactate (Haldol) 5 mg IVPUSH ONETIME ONE Stop: 09/15/19 19:05 Last Admin: 09/15/19 21:47 Dose: 5 mg Lorazepam (Ativan) 0.5 mg IVPUSH ONETIME ONE Stop: 09/15/19 17:25 Last Admin: 09/15/19 17:43 Dose: 0.5 mg Lorazepam (Ativan) 1 mg IVPUSH ONETIME ONE Stop: 09/15/19 19:06 Last Admin: 09/15/19 19:09 Dose: 1 mg Non-Formulary Medication (Melatonin [Melatonin]) 5 mg PO BEDTIME [facility] Quetiapine Fumarate (Seroquel) 25 mg PO ONETIME ONE Stop: 09/15/19 20:22 Last Admin: 09/15/19 21:37 Dose: 25 mg Quetiapine Fumarate (Seroquel) 25 mg PO BID [facility] Last Admin: 09/17/19 09:10 Dose: Not Given - Exam Quality Assessment: Reports: DVT Prophylaxis (Eliquis). Denies: Supplemental Oxygen, Central Line/PICC, Urine Catheter, Skin Breakdown, Restraints General: Reports: Alert, Cooperative, No Acute Distress. Denies: Oriented ( Stable confusion) HEENT: Reports: Pupils Equal, Pupils Reactive, EOMI, Mucous Membr. Moist/[place], Other (Patient is wearing glasses). Denies: Scleral Icterus Neck: Reports: Supple, Trachea Midline, No JVD, No Thyromegaly, Carotid Bruit ( Mild bilateral carotid bruits). Denies: Lymphadenopathy Lungs: Reports: Clear to Auscultation, Normal Respiratory Effort. Denies: Rub Cardiovascular: Reports: Regular Rate, Regular Rhythm, No Murmurs. Denies: Gallops, Rubs GI/Abdominal Exam: Normal Bowel Sounds, Soft, Non-Tender, No Organomegaly, No Distention, No Abnormal Bruit, No Mass. No: Guarding (Male) Exam: Deferred Rectal (Males) Exam: Deferred Back Exam: Reports: Normal Inspection, Full Range of Motion. Denies: CVA Tenderness (L), CVA Tenderness (R), Muscle Spasm Extremities: Normal Inspection, Normal Range of Motion, Non-Tender, No Pedal Edema, Normal Capillary Refill. No: Adrianne's Sign Skin: Reports: Warm, Dry, Intact. Denies: Ecchymosis Neurological: Reports: No New Focal Deficit, Other (Stable moderate organic brain syndrome/confusion with no agitation) Psy/Mental Status: Reports: Alert, Normal Affect, Normal Mood. Denies: Agitated , Hallucinations, Withdrawal Symptoms EKG INTERPRETATION EKG Date: 09/17/19 Time: 09:11 Rhythm: NSR (Mild sinus arrhythmia) Rate (Beats/Min): 67 [place]: Normal (Neutral cardiac axis) P-Wave: Present QRS: Normal (0.08 seconds with mild repolarization changes) ST-T: Normal QT: Normal IN/PQ Interval: 0.16 seconds with mild poor R-wave progression in the anterior leads Comparison: NA - No Prior EKG EKG Interpretation Comments: No acute ischemic changes
[2019-09-18] MEDS ORDERED: QUEtiapine 25 MG Tab PO SCH (08:00)
== END 2019-09-17 13:40 | disposition swing bed (61) ==
LOC: LL.ED 16:00 → LL.MS 18:30 → UNDOADMOB 18:30 → LL.MS 20:17
PROVIDERS: ADMIT Emergency Medicine; ATTEND Family Medicine
DX: R41.0 Disorientation, unspecified (principal); I12.9 Hypertensive chronic kidney disease with stage 1 through stage 4 chronic kidney disease, or unspecified chronic kidney disease; N18.6 End stage renal disease; E78.00 Pure hypercholesterolemia, unspecified; K21.9 Gastro-esophageal reflux disease without esophagitis; C91.11 Chronic lymphocytic leukemia of B-cell type in remission; I25.10 Atherosclerotic heart disease of native coronary artery without angina pectoris; J45.20 Mild intermittent asthma, uncomplicated; K44.9 Diaphragmatic hernia without obstruction or gangrene; F41.8 Other specified anxiety disorders; I25.2 Old myocardial infarction; I48.0 Paroxysmal atrial fibrillation; H35.30 Unspecified macular degeneration; E78.5 Hyperlipidemia, unspecified; E88.09 Other disorders of plasma-protein metabolism, not elsewhere classified; H81.09 Meniere's disease, unspecified ear; Z79.899 Other long term (current) drug therapy; Z79.82 Long term (current) use of aspirin; Z87.891 Personal history of nicotine dependence; Z95.5 Presence of coronary angioplasty implant and graft; Z99.2 Dependence on renal dialysis; Z79.51 Long term (current) use of inhaled steroids
CPT/HCPCS: 36415; 70450; 80053; 81001; 82140; 82607; 82728; 82746; 82962; 83036; 83540; 83550; 83735; 83880; 84443; 84484; 84550; 85025; 93005; 96374; 96375; 96376; 97162; 97530; 99217; 99219; 99225; 99285; A9270; G0378; J1200; J1630; J2060

== ENCOUNTER 2019-09-17 13:14 | Inpatient (IN) | payer MEDICARE, OTHER ==
[2019-09-17] MEDS ORDERED: Acetaminophen 325 MG Tab PO PRN (13:58)
[2019-09-17] MEDS ORDERED: Nitroglycerin 0.4 MG Tab.SL SL PRN ×2 (16:53→17:00)
[2019-09-17] MEDS: Sucralfate 1 GM Tab PO SCH (17:35)
[2019-09-17] MEDS: Apixaban 5 MG Tab PO SCH (17:35)
[2019-09-17] MEDS ORDERED: atorvaSTATin 10 MG Tab PO SCH (18:00)
[2019-09-17] MEDS: Formoterol/Mometasone 200-5 MCG 8.8 GM Inhaler IH SCH (19:32)
[2019-09-17] MEDS: Temazepam 15 MG Cap PO PRN (20:20)
[2019-09-17] MEDS ORDERED: Haloperidol Lactate 5 MG/ML SDV IM ONE (21:47)
[2019-09-18] MEDS: QUEtiapine 25 MG Tab PO SCH ×3 (00:04→17:29)
[2019-09-18] MEDS ORDERED: QUEtiapine 25 MG Tab PO SCH (08:00)
[2019-09-18] MEDS: Sucralfate 1 GM Tab PO SCH ×3 (09:25→17:28)
[2019-09-18] MEDS: Metoprolol Succinate 50 MG Tab.ER PO SCH (09:26)
[2019-09-18] MEDS: amLODIPine 5 MG Tab PO SCH (09:27)
[2019-09-18] MEDS: Omeprazole 20 MG Cap.CR PO SCH (09:27)
[2019-09-18] MEDS: Apixaban 5 MG Tab PO SCH ×2 (09:28→17:29)
[2019-09-18] MEDS: Formoterol/Mometasone 200-5 MCG 8.8 GM Inhaler IH SCH ×2 (09:28→20:41)
--- NOTE | 2019-09-18 10:00 | PCM.SN.2 ---
- Free Text/Narrative Note: Note that the patient did have problems with agitation yesterday evening requiring IM Haldol injection. He did not receive his morning dose of Seroquel, which is also decreased yesterday. He will be returned back to previous Seroquel at 25 mg by mouth twice a day for now since this was effective during his observation status in this facility. Note that the only is still deciding about long-term placement, etc.
[2019-09-18] MEDS: ATORVASTATIN 20MG TABLETS PO SCH (17:29)
[2019-09-18] MEDS: Temazepam 15 MG Cap PO PRN (20:45)
[2019-09-19] MEDS: Sucralfate 1 GM Tab PO SCH ×3 (09:00→17:12)
[2019-09-19] MEDS: QUEtiapine 25 MG Tab PO SCH ×2 (09:01→17:13)
[2019-09-19] MEDS: Apixaban 5 MG Tab PO SCH ×2 (09:01→17:13)
[2019-09-19] MEDS: Formoterol/Mometasone 200-5 MCG 8.8 GM Inhaler IH SCH ×2 (09:01→20:33)
[2019-09-19] MEDS: Omeprazole 20 MG Cap.CR PO SCH (09:01)
[2019-09-19] MEDS: amLODIPine 5 MG Tab PO SCH (09:02)
[2019-09-19] MEDS: Metoprolol Succinate 50 MG Tab.ER PO SCH (09:02)
[2019-09-19] MEDS: ATORVASTATIN 20MG TABLETS PO SCH (17:12)
[2019-09-20] MEDS: Omeprazole 20 MG Cap.CR PO SCH (07:20)
[2019-09-20] MEDS: Metoprolol Succinate 50 MG Tab.ER PO SCH (07:21)
[2019-09-20] MEDS: amLODIPine 5 MG Tab PO SCH (07:21)
[2019-09-20] MEDS: QUEtiapine 25 MG Tab PO SCH ×2 (07:23→18:01)
[2019-09-20] MEDS: Sucralfate 1 GM Tab PO SCH ×3 (07:23→18:00)
[2019-09-20] MEDS: Apixaban 5 MG Tab PO SCH ×2 (07:24→18:00)
[2019-09-20] MEDS: Formoterol/Mometasone 200-5 MCG 8.8 GM Inhaler IH SCH ×2 (07:24→19:47)
[2019-09-20] MEDS: ATORVASTATIN 20MG TABLETS PO SCH (18:00)
[2019-09-21] MEDS: Formoterol/Mometasone 200-5 MCG 8.8 GM Inhaler IH SCH ×2 (07:17→20:58)
[2019-09-21] MEDS: Apixaban 5 MG Tab PO SCH ×2 (07:18→17:16)
[2019-09-21] MEDS: Omeprazole 20 MG Cap.CR PO SCH (07:18)
[2019-09-21] MEDS: Metoprolol Succinate 50 MG Tab.ER PO SCH (07:22)
[2019-09-21] MEDS: amLODIPine 5 MG Tab PO SCH (07:22)
[2019-09-21] MEDS: Sucralfate 1 GM Tab PO SCH ×3 (07:23→17:16)
[2019-09-21] MEDS: QUEtiapine 25 MG Tab PO SCH ×2 (07:23→17:17)
[2019-09-21] MEDS: ATORVASTATIN 20MG TABLETS PO SCH (17:16)
[2019-09-22] MEDS: Apixaban 5 MG Tab PO SCH ×2 (07:07→17:09)
[2019-09-22] MEDS: Formoterol/Mometasone 200-5 MCG 8.8 GM Inhaler IH SCH ×2 (07:07→20:45)
[2019-09-22] MEDS: amLODIPine 5 MG Tab PO SCH (07:08)
[2019-09-22] MEDS: QUEtiapine 25 MG Tab PO SCH ×2 (07:08→17:10)
[2019-09-22] MEDS: Omeprazole 20 MG Cap.CR PO SCH (07:09)
[2019-09-22] MEDS: Sucralfate 1 GM Tab PO SCH ×3 (07:09→17:10)
[2019-09-22] MEDS: Metoprolol Succinate 50 MG Tab.ER PO SCH (07:09)
--- NOTE | 2019-09-22 13:40 | PCM.DCSUM1 ---
Discharge Summary - Hospital Course Brief History: Patient admitted to Swing Bed after Observation admission for confusion. Presented to ER with history of progressively worsening confusion present since at least last fall per daughter's report. Acute worsening observed by daughter on day of evaluation Diagnosis: Stroke: No - Discharge Data Discharge Date: 09/23/19 Discharge Disposition: Home, Self-Care 01 Condition: Good - Referral to Home Health Primary Care Physician: Yocasta Husain, MANUGRAPHER - Discharge Diagnosis/Problem(s) (1) Confusion SNOMED Code(s): 798711865 ICD Code: R41.0 - DISORIENTATION, UNSPECIFIED Status: Chronic Priority: High Current Visit: No Problem Details: Worsening confusion/dementia noted by daughter since last fall. Admitted to Observation due to acute exacerbation. Later changed to self-pay swing while family tried to come up with plan for patient after discharge. At this time he will be discharged home to his apartment where one son will live with patient 12/11 while they wait for their local fpc of choice to be able to take patient. Agitation improved after addition of Seroquel. Patient noted to be confused and inappropriate at times with staff during admission. No formal workup/cognitive testing to this point. This should be scheduled through primary provider as outpatient. Seroquel decreased to a daily rather than twice a day regimen secondary to patient's mild BNP elevation and hyponatremia but agitation returned requiring Haldol. The patient did require initial IV Haldol and IV Ativan for control of his agitation. Switched to Seroquel with good results. (2) Paroxysmal A-fib SNOMED Code(s): 791784913 ICD Code: I48.0 - PAROXYSMAL ATRIAL FIBRILLATION Status: Acute Priority: Medium Current Visit: No Problem Details: Stable per history with current Eliquis. Note atrial fibrillation not indicated on emergency room note, however this was documented in EMR records. (3) Asthma SNOMED Code(s): 117253901 ICD Code: J45.909 - UNSPECIFIED ASTHMA, UNCOMPLICATED Status: Chronic Priority: Medium Current Visit: No Problem Details: No recent fever or bronchitic type symptoms. Qualifiers: (4) CAD (coronary artery disease) SNOMED Code(s): 97649098 ICD Code: I25.10 - ATHSCL HEART DISEASE OF [place] CORONARY ARTERY W/O ANG PCTRS Status: Chronic Priority: Medium Current Visit: No Problem Details : Hx of [place], stent placement, diastolic dysfunction, valvular disease. Followed by Cardiology. No acute changes/chest pain per patient and his family. Qualifiers: (5) CKD (chronic kidney disease) SNOMED Code(s): 573763057 ICD Code: N18.9 - CHRONIC KIDNEY DISEASE, UNSPECIFIED Status: Chronic Priority: Medium Current Visit: No Problem Details: Stable per history and today's blood work with continued close observation by his regular providers. Qualifiers: (6) CLL (chronic lymphocytic leukemia) SNOMED Code(s): 72043514 ICD Code: C91.10 - CHRONIC LYMPHOCYTIC LEUK OF B-CELL TYPE NOT ACHIEVE REMIS Status: Chronic Priority: Medium Current Visit: No Problem Details: Mild leukocytosis on admission some improvement on 09/16.. Note comfort care. Continue to observe closely by regular providers. (7) GERD (gastroesophageal reflux disease) SNOMED Code(s): 360160187 ICD Code: K21.9 - GASTRO-ESOPHAGEAL REFLUX DISEASE WITHOUT ESOPHAGITIS Status: Chronic Priority: Low Current Visit: No Problem Details: Stable per history with discontinuation of Pepcid due to patient's confusion. Also history of hiatal hernia Qualifiers: (8) HTN (hypertension) SNOMED Code(s): 55066835 ICD Code: I10 - ESSENTIAL (PRIMARY) HYPERTENSION Status: Chronic Priority : Medium Current Visit: No Problem Details: Good control during this hospitalization. Qualifiers: (9) Hyperlipidemia SNOMED Code(s): 77169603 ICD Code: E78.5 - HYPERLIPIDEMIA, UNSPECIFIED Status: Chronic Priority: Medium Current Visit: No Problem Details: Statin discontinued for now as it can be risk factor for dementia. To discuss with primary provider/cardiology risk/benefit of restarting of medication. Glycosylated hemoglobin on 09/16 mildly elevated at 6.7%. Continue dietary management for now with repeat lipid panel per the discretion of his regular providers. Qualifiers: (10) Mixed anxiety depressive disorder SNOMED Code(s): 303047704 ICD Code: F41.8 - OTHER SPECIFIED ANXIETY DISORDERS Status: Chronic Priority: Medium Current Visit: No Problem Details: Otherwise stable by history. Observe for now. (11) Need for comfort care SNOMED Code(s): 954968142, 740202444 ICD Code: [id number] - Status: Chronic Priority: High Current Visit: No Problem Details: As above - Patient Summary/Data Consults: Consultations 09/17/19 13:55 Consult to Case Management/Rn Pacu [CONS] Routine 09/17/19 18:17 OT Evaluation and Treatment [CONS] Routine PT Evaluation and Treatment [CONS] Routine Hospital Course: Agitation improved during stay with the addition of Seroquel. Patient remained moderately confused. Chronic small vessel disease/atrophy noted on CT along with non-specific finding that Radiology did not think was contributing to clinical picture. Patient switched from Observation to Swing Bed at request of family while they decided how best to deal with the situation and future living arrangements for the patient. He did not qualify for PT/OT. Patient remained under close observation with wander-guard for his safety. Family did decide to have patient return to his apartment tomorrow on 09/22 where one of his sons will live with him automotive parts counter person until their local fpc in [place] is set up to take the patient in as a resident. They are to follow up closely with patient's primary provider for the above chronic medical conditions, and to discuss arrangement formal cognitive testing as outpatient. Will continue patient's Seroquel as it has been doing well for controlling agitation/anger at being here on Swingbed. - Patient Instructions Diet: Usual Diet as Tolerated Activity: As Tolerated Driving: Do Not Drive Showering/Bathing: May Shower Other/Special Instructions: Follow up with primary provider to review current meds and work on referral for formal cognitive testing with Neurology. - Discharge Plan *PRESCRIPTION DRUG MONITORING PROGRAM REVIEWED*: Not Applicable *COPY OF PRESCRIPTION DRUG MONITORING REPORT IN PATIENT KHURRAM: Not Applicable Prescriptions/Med Rec: QUEtiapine [SEROquel] 25 mg PO BID #60 tablet Home Medications: Home Meds Aspirin [Adult Low Dose Aspirin EC] 81 mg PO DAILY 07/19/14 [History] Fluticasone/Salmeterol [Advair 500-50] 1 puff INH BID 07/19/14 [History] Metoprolol Succinate [Toprol XL] 50 mg PO DAILY 07/19/14 [History] Omeprazole 20 mg PO DAILY 07/19/14 [History] amLODIPine [Norvasc] 5 mg PO DAILY 01/20/19 [History] Apixaban [Eliquis] 5 mg PO BID 03/23/19 [History] Melatonin 5 mg PO BEDTIME 03/23/19 [History] Nitroglycerin [Nitrostat] 0.4 mg SL ASDIRECTED PRN 03/23/19 [History] Vit C/E/Zn/Coppr/Lutein/Zeaxan [Preservision Areds 2 Softgel] 1 each PO BID 06/10 [History] Budesonide/Formoterol Fumarate [Symbicort 160-4.5 Mcg Inhaler] 2 puff INH BID [History] Famotidine [Pepcid] 40 mg PO DAILY 09/15/19 [History] Sucralfate [Carafate] 1 gm PO TID 09/15/19 [History] Temazepam [Restoril] 30 mg PO BEDTIME PRN 09/15/19 [History] QUEtiapine [SEROquel] 25 mg PO BID #60 tablet 09/22/19 [Rx] - Discharge Summary/Plan Comment DC Time >30 min.: Yes (To be discharged tomorrow morning.) - General Info Date of Service: 09/22/19 Admission Dx/Problem (Free Text: Worsening confusion Subjective Update: confused, no acute complaints. Wants to leave. Functional Status: Reports: Pain Controlled, Tolerating Diet, Ambulating, Urinating - Review of Systems General: Reports: No Symptoms HEENT: Reports: Glasses Pulmonary: Reports: No Symptoms Cardiovascular: Reports: No Symptoms Gastrointestinal: Reports: No Symptoms Genitourinary: Reports: No Symptoms Musculoskeletal: Reports: Other (no acute changes from baseline) Skin: Denies: Cyanosis, Jaundice, Mottled, Pallor, Diaphoresis Neurological: Reports: Confusion. Denies: Headache, Trouble Speaking, Change in Speech Psychiatric: Reports: Confusion, Agitation. Denies: Hallucinations, Suicidal Ideation, Homicidal Ideation - Patient Data Vitals - Most Recent: Last Vital Signs Temp 36.8 C 09/22/19 07:05 Pulse 75 09/22/19 07:09 Resp 16 09/22/19 07:05 BP 143/71 H 09/22/19 07:09 Pulse Ox 97 09/22/19 07:05 Weight - Most Recent: 88.451 kg I&O - Last 24 hours: Intake & Output 09/21/19 09/22/19 09/22/19 22:59 06:59 14:59 Intake Total 140 250 Balance 140 250 Med Orders - Current: Current Medications Acetaminophen (Tylenol) 650 mg PO Q4H PRN PRN Reason: Pain (Mild 1-3)/fever Last Admin: 09/18/19 20:42 Dose: 650 mg Amlodipine Besylate (Norvasc) 5 mg PO DAILY [facility] Last Admin: 09/22/19 07:08 Dose: 5 mg Apixaban (Eliquis) 5 mg PO BID [facility] Last Admin: 09/22/19 07:07 Dose: 5 mg Metoprolol Succinate (Toprol Xl) 50 mg PO DAILY [facility] Last Admin: 09/22/19 07:09 Dose: 50 mg Mometasone Furoate/Formoterol Fumar (Dulera 200-5 Mcg) 2 puff IH BIDRT [facility] Last Admin: 09/22/19 07:07 Dose: 2 puff Atorvastatin 20mg (Tablets) 1 each PO QPM [facility] Last Admin: 09/21/19 17:16 Dose: 1 each Omeprazole (Omeprazole) 20 mg PO DAILY [facility] Last Admin: 09/22/19 07:09 Dose: 20 mg Quetiapine Fumarate (Seroquel) 25 mg PO BID [facility] Last Admin: 09/22/19 07:08 Dose: 25 mg Sucralfate (Carafate) 1 gm PO TIDAC [facility] Last Admin: 09/22/19 12:46 Dose: 1 gm Temazepam (Restoril) 15 mg PO BEDTIME PRN PRN Reason: Insomnia Last Admin: 09/18/19 20:45 Dose: 15 mg Discontinued Medications Atorvastatin Calcium (Lipitor) 20 mg PO QPM [facility] Last Admin: 09/17/19 17:35 Dose: 20 mg Haloperidol Lactate (Haldol) 5 mg IM ONETIME ONE Stop: 09/17/19 21:48 Last Admin: 09/17/19 21:56 Dose: 5 mg Nitroglycerin (Nitrostat) 0.4 mg SL Q5M PRN PRN Reason: Chest Pain Stop: 09/18/19 16:53 Nitroglycerin (Nitrostat) 0.4 mg SL Q5M PRN PRN Reason: Chest Pain Stop: 09/18/19 17:00 Quetiapine Fumarate (Seroquel) 25 mg PO DAILY [facility] - Exam General: Reports: Alert, Cooperative HEENT: Reports: Pupils Reactive, EOMI, Mucous Membr. Moist/[place] Lungs: Reports: Clear to Auscultation, Normal Respiratory Effort Cardiovascular: Reports: Regular Rate, Regular Rhythm GI/Abdominal Exam: Normal Bowel Sounds, Soft, Non-Tender (Male) Exam: Deferred Rectal (Males) Exam: Deferred Back Exam: Denies: Muscle Spasm Extremities: Non-Tender, Normal Capillary Refill Skin: Reports: Warm, Dry, Intact Neurological: Reports: No New Focal Deficit Psy/Mental Status: Reports: Alert, Other (confused)
[2019-09-22] MEDS: ATORVASTATIN 20MG TABLETS PO SCH (17:10)
[2019-09-23] MEDS: Sucralfate 1 GM Tab PO SCH ×2 (07:49→11:49)
[2019-09-23] MEDS: Formoterol/Mometasone 200-5 MCG 8.8 GM Inhaler IH SCH (07:49)
[2019-09-23] MEDS: Apixaban 5 MG Tab PO SCH (07:49)
[2019-09-23] MEDS: QUEtiapine 25 MG Tab PO SCH (07:50)
[2019-09-23] MEDS: Omeprazole 20 MG Cap.CR PO SCH (07:50)
[2019-09-23] MEDS: Metoprolol Succinate 50 MG Tab.ER PO SCH (07:54)
[2019-09-23 07:55] VITALS: BP 172/78; PULSE 68
[2019-09-23] MEDS: amLODIPine 5 MG Tab PO SCH (07:55)
== END 2019-09-23 15:10 | disposition home or self-care (01) | DRG 948 ==
LOC: LL.MS 13:14
PROVIDERS: ADMIT Family Medicine; ATTEND Family Medicine
DX: R41.0 Disorientation, unspecified (principal); E87.1 Hypo-osmolality and hyponatremia; C91.10 Chronic lymphocytic leukemia of B-cell type not having achieved remission; I67.89 Other cerebrovascular disease; R45.1 Restlessness and agitation; I48.0 Paroxysmal atrial fibrillation; Z51.5 Encounter for palliative care; J45.909 Unspecified asthma, uncomplicated; I25.10 Atherosclerotic heart disease of native coronary artery without angina pectoris; N18.9 Chronic kidney disease, unspecified; K21.9 Gastro-esophageal reflux disease without esophagitis; E78.5 Hyperlipidemia, unspecified; F41.8 Other specified anxiety disorders; E88.09 Other disorders of plasma-protein metabolism, not elsewhere classified; I12.9 Hypertensive chronic kidney disease with stage 1 through stage 4 chronic kidney disease, or unspecified chronic kidney disease; I25.2 Old myocardial infarction; Z95.5 Presence of coronary angioplasty implant and graft; Z79.82 Long term (current) use of aspirin; Z79.899 Other long term (current) drug therapy
CPT/HCPCS: 94640; 97110-GP; 97161-GP; 97165-GO; 97530-GO; 97530-GP; 97535-GO; A9270-GY; J1630

== ENCOUNTER 2020-01-30 11:10 | Emergency (ER) | payer MEDICARE, OTHER ==
[2020-01-30 11:59] VITALS: BP 147/54; PULSE 73
[2020-01-30 12:05] LABS: CHLORIDE,CL 104 mmol/L (98-107); SODIUM,NA 140 mmol/L (136-145)
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
[2020-01-30] MEDS ORDERED: Bacitracin/Neomycin/Polymyxin B Oint 0.9 GM U/D Packet TOP ONE (12:38)
== END 2020-01-30 13:45 ==
LOC: LL.ED 11:10
DX: S01.01XA Laceration without foreign body of scalp, initial encounter (principal); S50.01XA Contusion of right elbow, initial encounter; I10 Essential (primary) hypertension; I25.10 Atherosclerotic heart disease of native coronary artery without angina pectoris; I25.2 Old myocardial infarction; K21.9 Gastro-esophageal reflux disease without esophagitis; J45.909 Unspecified asthma, uncomplicated; Z95.5 Presence of coronary angioplasty implant and graft; Z79.01 Long term (current) use of anticoagulants; Z88.8 Allergy status to other drugs, medicaments and biological substances; Z79.82 Long term (current) use of aspirin; Z79.899 Other long term (current) drug therapy; W19.XXXA Unspecified fall, initial encounter; Y92.129 Unspecified place in nursing home as the place of occurrence of the external cause
CPT/HCPCS: 36415; 70450; 73070-RT; 80053; 85027; 85610; 99284-25